=== PATIENT | female | born 1970 | race Caucasian/White ===

== ENCOUNTER 2021-04-11 17:55 | Emergency (ER) | payer OTHER ==
[2021-04-11 18:02] VITALS: TEMP 97.9; BMI 34.2
[2021-04-11] MEDS ORDERED: FAMOTIDINE 20 MG/50 ML IVPB 20 MG/50 ML MG IVPB ONE ×2 (18:46→18:54)
[2021-04-11] MEDS ORDERED: KETOROLAC TROMETHAMINE 30 MG/1 ML VIAL IVPUSH ONE (18:46)
[2021-04-11] MEDS ORDERED: SODIUM CHLORIDE 0.9% 500 ML INFUS.BAG IV ONE (18:46)
[2021-04-11] MEDS ORDERED: KETOROLAC TROMETHAMINE 30 MG/1 ML VIAL ONE (18:54)
[2021-04-11 19:35] LABS: BASO % 0.5 % (0-2.0); EOS % 1.3 % (0-4.5); HEMATOCRIT 43.9 % (32.4-45.2); HEMOGLOBIN 14.5 GM/dL (10.7-15.3); LYMPH % 18.4 % (8-40); MCH 28.2 pg (25.7-33.7); MCHC 33.1 g/dl (32.0-36.0); MEAN CELL VOLUME 85.1 fl (80-96); MEAN PLT VOLUME 7.4 fl (7.5-11.1); MONO % 6.3 % (3.8-10.2); NEUT % 73.5 % (42.8-82.8); PLATELET COUNT 352 10^3/uL (134-434); RBC 5.16 M/mm3 (3.60-5.2); RDW 12.9 % (11.6-15.6); WHITE BLOOD COUNT 10.2 K/mm3 (4.0-10.0)
[2021-04-11 19:48] LABS: ALBUMIN 4.4 g/dl (3.4-5.0); BLOOD UREA NITROGEN 17.4 mg/dL (7-18); CALCIUM 10.3 mg/dL (8.5-10.1)
[2021-04-11 19:51] LABS: CREATININE 0.9 mg/dL (0.55-1.3)
[2021-04-11 19:53] LABS: BILIRUBIN,TOTAL 0.3 mg/dL (0.2-1); TOT PROT 8.6 g/dl (6.4-8.2)
[2021-04-11] MEDS ORDERED: DICYCLOMINE HCL 10 MG CAPSULE PO ONE (21:32)
[2021-04-11] MEDS ORDERED: LIDOCAINE VISCOUS 2% ORAL/TOP 20 ML UNIT-DOSE CUP MM ONE (21:32)
[2021-04-11] MEDS ORDERED: MAG HYDROX/AL HYDROX/SIMETH 30 ML UNIT-DOSE CUP PO ONE (21:32)
[2021-04-11] MEDS ORDERED: ACETAMINOPHEN 1000 MG/100 ML VIAL (NON FORMULARY) IVPB ONE (21:50)
[2021-04-11] MEDS ORDERED: LIDOCAINE VISCOUS 2% ORAL/TOP 20 ML UNIT-DOSE CUP ONE (21:55)
[2021-04-11] MEDS ORDERED: ACETAMINOPHEN INJECTION 100 ML IVPB ONE (21:56)
[2021-04-11] MEDS ORDERED: DICYCLOMINE HCL 10 MG CAPSULE ONE (21:56)
[2021-04-11] MEDS ORDERED: MAG HYDROX/AL HYDROX/SIMETH 30 ML UNIT-DOSE CUP ONE (21:56)
[2021-04-11 22:51] VITALS: BP 150/86; PULSE 62
== END 2021-04-11 23:08 | disposition home or self-care (01) ==
LOC: JER 17:55
PROC: 3E0333Z Introduction of Anti-inflammatory into Peripheral Vein, Percutaneous Approach (ICD-10-PCS; principal; 2021-04-11)
PROC: 3E033GC Introduction of Other Therapeutic Substance into Peripheral Vein, Percutaneous Approach (ICD-10-PCS; 2021-04-11)
PROC: 3E0333Z Introduction of Anti-inflammatory into Peripheral Vein, Percutaneous Approach (ICD-10-PCS; 2021-04-11)
DX: R10.13 Epigastric pain (principal)
CPT/HCPCS: 36415; 76705-TC; 80053; 83690; 85025; 93005; 93010; 99285-25; J0131

== ENCOUNTER 2021-08-13 12:16 | Emergency (ER) | payer OTHER ==
[2021-08-13 12:43] VITALS: BP 142/77; PULSE 76; TEMP 101.5; BMI 33.9
[2021-08-13] MEDS ORDERED: ACETAMINOPHEN 500 MG TABLET (FP) PO ONE (12:55)
[2021-08-13] MEDS ORDERED: ACETAMINOPHEN 500 MG TABLET (FP) ONE (13:13)
== END 2021-08-13 15:30 | disposition home or self-care (01) ==
LOC: JER 12:16
DX: R05.9 Cough, unspecified (principal); R50.81 Fever presenting with conditions classified elsewhere
CPT/HCPCS: 71046-TC-FY; 87804; 99284-25; C9803; U0003; U0005